=== PATIENT | female | born 1955 | race Caucasian/White ===

== ENCOUNTER → 2020-01-11 | Outpatient (CLI) | payer BC ==
--- NOTE | 2020-01-11 20:02 | Diagnostic Imaging Report ---
PROCEDURE: US thyroid. TECHNIQUE: Multiple real-time grayscale images were obtained of the thyroid in various projections. INDICATION: Hypothyroid. Globus sensation. COMPARISON: There is no prior study for comparison. FINDINGS: The thyroid gland is not enlarged. The right lobe measures 3.6 x 2.1 x 1.6 cm while the left lobe is estimated to be 3.7 x 1.6 x 1.1 cm (normal gland size is 4-5 x 2.2 cm or less). In the superior pole of the right lobe, there is a 1.6 x 1.4 x 1.1 cm nodule. This lesion is mixed solid and cystic and hypoechoic. It does appear to be wider than tall and has a lobulated irregular border. There are no calcifications associated with this finding. I would rate this is a TR4. An ultrasound-guided biopsy should certainly be considered. If there is no intervention this time, then a short-term (three-month) follow-up exam should be obtained. There is no focal mass involving the left lobe. IMPRESSION: 1. There is a suspicious hypoechoic lesion in the superior pole of the right lobe of the thyroid. I rate this as a TI-RADS 4. Recommendations as above. 2. The left lobe of the thyroid is unremarkable and the thyroid gland, itself, is not enlarged. TI-RADS 4: Moderately Suspicious FNA if ? 1.5 cm Follow if ? 1 cm (At 1, 2, 3 and 5 years from initial scan) Dictated by: Dictated on workstation # [id number]
== END ==
LOC: RAD 12:44
PROVIDERS: ATTEND Otolaryngology Otolaryngology/Facial Plastic Surgery
DX: E03.9 Hypothyroidism, unspecified (principal); R44.8 Other symptoms and signs involving general sensations and perceptions
CPT/HCPCS: 76536

== ENCOUNTER → 2020-02-20 | Outpatient (CLI) | payer BC ==
[~2020-02-20] VITALS: Ht 165.1 cm; Wt 77.3 kg
[~2020-02-20] MED LIST: LIDOCAINE 1% INJ 20 ML 20 ML VIAL INJ ONE
--- NOTE | 2020-02-20 10:02 | Diagnostic Imaging Report ---
INDICATION: Right thyroid nodule. Patient presents for ultrasound-guided biopsy. Patient brought to the procedure and placed on table in the supine position. Ultrasound imaging of the right neck was performed to evaluate appropriate entry site. The right neck was then prepped and draped in usual sterile fashion. A small amount of 1% lidocaine was utilized for local anesthesia. A total of 4 passes were made into the hypoechoic nodule in upper pole right lobe of thyroid utilizing 25-gauge needles. Fine-needle aspiration technique was performed. A final pass was made into the nodule with a Rotex needle and Rotex biopsy was performed. Rosebud were removed and hemostasis was obtained using manual compression. Patient tolerated the procedure well and left the department in stable condition. IMPRESSION: Ultrasound-guided fine-needle aspiration and Rotex biopsy of the hypoechoic nodule upper pole right lobe of the thyroid. Pathology results are currently pending. Dictated by: Dictated on workstation # [id number]
== END ==
LOC: RAD 08:19
PROVIDERS: ATTEND Otolaryngology Otolaryngology/Facial Plastic Surgery
DX: E04.1 Nontoxic single thyroid nodule (principal); Z88.8 Allergy status to other drugs, medicaments and biological substances
CPT/HCPCS: 88173

== ENCOUNTER → 2020-07-28 | Outpatient (CLI) | payer BC, MEDICARE ==
[2020-07-28 12:09] LABS: FREE T4 (FREE THYROXINE) 1.08 NG/DL (0.70-1.48)
--- NOTE | 2020-07-28 12:22 | Diagnostic Imaging Report ---
PROCEDURE: US Thyroid. TECHNIQUE: Multiple real-time grayscale images were obtained of the thyroid in various projections. INDICATION: Thyroid nodule. FINDINGS: In the posterior aspect of the midpole of the right thyroid lobe laterally, there is a new well-defined nodule measuring 1 cm in long axis with a hypoechoic rim and central hyperechogenicity. It showed no extra thyroidal extension and is solid. In the upper pole of the right lobe previously there was a large vesiculated spongiform nodule which is now resolved. The left lobe was nonfocal. The right thyroid lobe measured 4.1 cm, the left lobe 4.1 cm. IMPRESSION: New right lobe nodule is a TI-RADS 4 lesion however given its small size of 1 cm, followup in 1, 2, 3 and 5 year interval suggested. Dictated by: Dictated on workstation # [id number]
== END ==
LOC: RAD 10:56
PROVIDERS: ATTEND Otolaryngology Otolaryngology/Facial Plastic Surgery
DX: E04.1 Nontoxic single thyroid nodule (principal); E06.3 Autoimmune thyroiditis
CPT/HCPCS: 36415; 76536; 84439; 84443; 86376

== ENCOUNTER → 2021-01-28 | Day surgery (SDC) | payer MEDICARE, OTHER ==
[~2021-01-28] VITALS: Ht 165 cm; Wt 77.3 kg
[~2021-01-28] MED LIST changes: +ALBU1.25 INH; +CARV25TA PO; +HYDR12.56 PO; +HYDROcodone/APAP 5 MG/325 MG (LORTAB) TAB PO PRN; +LEVO25CA4 PO; +MIDAZOLAM 2 MG/2 ML (VERSED) VIAL IVP ONE; +NS IV 1000 ML 1,000 ML IV STA; +PANT40TA52 PO; +fentaNYL INJ 100 MCG/2 ML AMP IVP ONE
[2021-01-28 08:29] VITALS: BP 103/74
[2021-01-28 08:30] LABS: BASOPHILS % (AUTO) 1 % (0-10); HEMOGLOBIN 9.7 g/dL (11.5-16.0)
[2021-01-28 08:33] LABS: ABSOLUTE RETIC # 186 10e9/uL (24-90); EOSINOPHILS % (AUTO) 1 % (0-10); HEMATOCRIT 31 % (35-52); LYMPHOCYTES # (AUTO) 2.4 10^3/uL (1.0-4.0); LYMPHOCYTES % (AUTO) 72 % (12-44); MEAN CORPUSCULAR HEMOGLOBIN 34 pg (25-34); MEAN CORPUSCULAR HGB CONC 31 g/dL (32-36); MEAN CORPUSCULAR VOLUME 108 fL (80-99); MEAN PLATELET VOLUME 9.1 fL (9.0-12.2); MONOCYTES # (AUTO) 0.3 10^3/uL (0.0-1.0); MONOCYTES % (AUTO) 8 % (0-12); NEUTROPHILS # (AUTO) 0.6 10^3/uL (1.8-7.8); NEUTROPHILS % (AUTO) 18 % (42-75); PLATELET COUNT 149 10^3/uL (130-400); RETICULOCYTE % 6.46 % (0.50-2.40); WHITE BLOOD COUNT 3.3 10^3/uL (4.3-11.0)
[2021-01-28 10:03] LABS: BAND NEUTROPHILS 2 %; BASOPHILS % (MANUAL) 0 %; EOSINOPHILS % (MANUAL) 0 %; LYMPHOCYTES % (MANUAL) 57 %; MONOCYTES % (MANUAL) 9 %; NEUTROPHILS % (MANUAL) 18 %; POIKILOCYTOSIS SLIGHT; REACTIVE LYMPHOCYTES 14 %
[2021-01-28 10:04] LABS: ANISOCYTOSIS SLIGHT; ELLIPT/OVALOCYTES SLIGHT; NUCLEATED RED BLOOD CELLS 1; TEAR DROP CELLS SLIGHT
[2021-02-04 11:00] VITALS: BP 141/89
[2021-02-04 11:05] VITALS: BP 154/85
[2021-02-04 11:10] VITALS: BP 134/83
[2021-02-04 11:15] VITALS: BP 123/68
== END ==
LOC: RAD 07:37
PROVIDERS: ATTEND Internal Medicine Hematology & Oncology
DX: Z53.8 Procedure and treatment not carried out for other reasons (principal)
CPT/HCPCS: 85027; 85045; 85055; 85610; 85730

== ENCOUNTER 2021-02-04 09:30 | Day surgery (SDC) | payer MEDICARE, OTHER ==
[~2021-02-04] VITALS: Ht 165 cm; Wt 77.3 kg
[2021-02-04] VITALS (11 sets, daily range): BP systolic 102–154; BP diastolic 68–89
[~2021-02-04 09:30] MED LIST changes: -HYDROcodone/APAP 5 MG/325 MG (LORTAB) TAB PO PRN; -LIDOCAINE 1% INJ 20 ML 20 ML VIAL INJ ONE; -MIDAZOLAM 2 MG/2 ML (VERSED) VIAL IVP ONE; -NS IV 1000 ML 1,000 ML IV STA; -fentaNYL INJ 100 MCG/2 ML AMP IVP ONE
[2021-02-04 10:20] LABS: ABSOLUTE RETIC # 199 10e9/uL (24-90); BASOPHILS % (AUTO) 1 % (0-10); EOSINOPHILS % (AUTO) 1 % (0-10); HEMATOCRIT 32 % (35-52); HEMOGLOBIN 10.1 g/dL (11.5-16.0); LYMPHOCYTES # (AUTO) 2.8 10^3/uL (1.0-4.0); LYMPHOCYTES % (AUTO) 75 % (12-44); MEAN CORPUSCULAR HEMOGLOBIN 34 pg (25-34); MEAN CORPUSCULAR HGB CONC 31 g/dL (32-36); MEAN CORPUSCULAR VOLUME 108 fL (80-99); MONOCYTES # (AUTO) 0.2 10^3/uL (0.0-1.0); MONOCYTES % (AUTO) 6 % (0-12); NEUTROPHILS # (AUTO) 0.6 10^3/uL (1.8-7.8); NEUTROPHILS % (AUTO) 17 % (42-75); PLATELET COUNT 162 10^3/uL (130-400); RETICULOCYTE % 6.71 % (0.50-2.40); WHITE BLOOD COUNT 3.7 10^3/uL (4.3-11.0)
[2021-02-04 10:30] LABS: PROTHROMBIN TIME PATIENT 13.7 SEC (12.2-14.7)
[2021-02-04] MEDS ORDERED: MIDAZOLAM 2 MG/2 ML (VERSED) VIAL ONE (10:34)
[2021-02-04] MEDS ORDERED: LIDOCAINE 1% INJ 20 ML 20 ML VIAL ONE (10:34)
[2021-02-04] MEDS ORDERED: fentaNYL INJ 100 MCG/2 ML AMP ONE (10:34)
[2021-02-04] MEDS ORDERED: NS IV 1000 ML 1,000 ML ONE (10:38)
[2021-02-04 10:54] LABS: EOSINOPHILS % (MANUAL) 2 %; LYMPHOCYTES % (MANUAL) 72 %; MONOCYTES % (MANUAL) 3 %; NEUTROPHILS % (MANUAL) 13 %
[2021-02-04 10:55] LABS: POLYCHROMASIA SLIGHT; REACTIVE LYMPHOCYTES 1 %
--- NOTE | 2021-02-04 11:47 | Pre-Op Note & Conscious Sedat ---
Pre-Operative Progress Note H&P Reviewed The H&P was reviewed, patient examined and no changes noted. Date H&P Reviewed: Feb 04, 2021 Time H&P Reviewed: 09:00 Pre-Op Diagnosis: low wbc count Conscious Sedation Pre-Proced Time 09:00 ASA Score 2 For ASA 3 and 4: Consider anesthesia and medical clearance. Also, for patients with a history of failed moderate sedation consider anesthesia. Airway Lungs Heart ASA score ASA 1: a normal healthy patient ASA 2: a patient with a mild systemic disease (mid diabetes, controlled hypertension, obesity ASA 3: a patient with a severe systemic disease that limits activity (angina, COPD, prior Myocardial infarction) ASA 4: a patient with an incapacitating disease that is a constant threat to life (CHF, renal failure) ASA 5: a moribund patient not expected to survive 24 hrs. (ruptured aneurysm) ASA 6: a declared brain- patient whose organs are being harvested. For emergent operations, add the letter E after the classification Mallampati Classification Grade 2 Sedation Plan Analgesia, Amnesia, Plan communicated to team members, Discussed options with patient/fam, Discussed risks with patient/fam The patient is an appropriate candidate to undergo the planned procedure, sedation, and anesthesia. The patient immediately re-assessed prior to indication. KAREN LUCERO MD Feb 04, 2021 11:47
--- NOTE | 2021-02-04 12:48 | Diagnostic Imaging Report ---
INDICATION: Decreased white blood cell count. Patient was brought to the CT suite and placed on table in the prone position. Axial imaging through the pelvis was performed to evaluate appropriate entry site. The procedure was performed utilizing conscious sedation with radiology nursing and constant patient monitoring. Patient was given a total of 50 mcg of fentanyl intravenously and 1 mg of Versed intravenously. Total procedure time was 5 minutes. Low back was prepped and draped in the usual sterile fashion. A small amount of 1% lidocaine was utilized for local anesthesia. Bone marrow needle was advanced and placed with its tip along the posterior cortex of the right iliac bone. The needle was advanced through the cortex utilizing the bone marrow drill. Two bone marrow aspirates were then obtained. A drill was then utilized to obtain a bone marrow core biopsy. Needle was removed, and hemostasis was obtained using manual compression. Patient tolerated the procedure well and left the department in stable condition. IMPRESSION: Successful CT-guided bone marrow aspiration and biopsy, utilizing conscious sedation. Dictated by: Dictated on workstation # [id number]
[2021-02-04] MEDS ORDERED: HYDROcodone/APAP 5 MG/325 MG (LORTAB) TAB PO PRN (13:00)
[2021-02-04] MEDS ORDERED: NS IV 1000 ML 1,000 ML IV STA (13:48)
[2021-02-04] MEDS ORDERED: fentaNYL INJ 100 MCG/2 ML AMP IVP ONE (14:00)
[2021-02-04] MEDS ORDERED: LIDOCAINE 1% INJ 20 ML 20 ML VIAL INJ ONE (14:00)
[2021-02-04] MEDS ORDERED: MIDAZOLAM 2 MG/2 ML (VERSED) VIAL IVP ONE (14:00)
== END 2021-02-04 13:30 ==
LOC: RAD 09:30
PROVIDERS: ATTEND Internal Medicine Hematology & Oncology
DX: D64.9 Anemia, unspecified (principal); D70.9 Neutropenia, unspecified; R11.10 Vomiting, unspecified; R19.7 Diarrhea, unspecified; R03.0 Elevated blood-pressure reading, without diagnosis of hypertension; E78.00 Pure hypercholesterolemia, unspecified; Z85.3 Personal history of malignant neoplasm of breast; Z85.820 Personal history of malignant melanoma of skin; Z79.899 Other long term (current) drug therapy; Z87.891 Personal history of nicotine dependence; Z86.718 Personal history of other venous thrombosis and embolism
CPT/HCPCS: 36415; 38222; 77012; 85007; 85027; 85045; 85610; 85730; 99156

== ENCOUNTER 2021-02-13 13:44 | Outpatient (RCR) | payer MEDICARE, OTHER ==
[2021-01-21 11:45] LABS: BASOPHILS % (AUTO) 1 % (0-10); HEMOGLOBIN 9.4 g/dL (11.5-16.0); MEAN PLATELET VOLUME 8.7 fL (9.0-12.2); MONOCYTES # (AUTO) 0.2 10^3/uL (0.0-1.0); MONOCYTES % (AUTO) 7 % (0-12)
[2021-01-21 11:47] LABS: ABSOLUTE RETIC # 181 10e9/uL (24-90); EOSINOPHILS % (AUTO) 1 % (0-10); HEMATOCRIT 30 % (35-52); LYMPHOCYTES # (AUTO) 2.5 10^3/uL (1.0-4.0); LYMPHOCYTES % (AUTO) 75 % (12-44); MEAN CORPUSCULAR HEMOGLOBIN 34 pg (25-34); MEAN CORPUSCULAR HGB CONC 31 g/dL (32-36); MEAN CORPUSCULAR VOLUME 108 fL (80-99); NEUTROPHILS # (AUTO) 0.6 10^3/uL (1.8-7.8); NEUTROPHILS % (AUTO) 17 % (42-75); PLATELET COUNT 166 10^3/uL (130-400); RETICULOCYTE % 6.48 % (0.50-2.40); WHITE BLOOD COUNT 3.4 10^3/uL (4.3-11.0)
[2021-01-21 12:04] LABS: ALANINE AMINOTRANSFERASE 17 U/L (0-55); ALBUMIN 4.1 GM/DL (3.2-4.5); ALKALINE PHOSPHATASE 48 U/L (40-136); BILIRUBIN,TOTAL 2.2 MG/DL (0.1-1.0); BUN/CREATININE RATIO 15; CALCIUM 9.1 MG/DL (8.5-10.1); CARBON DIOXIDE 26 MMOL/L (21-32); CHLORIDE 104 MMOL/L (98-107); CREATININE SERUM 0.67 MG/DL (0.60-1.30); GFR ESTIMATED > 60; GLUCOSE 186 MG/DL (70-105); POTASSIUM 3.7 MMOL/L (3.6-5.0); SODIUM 138 MMOL/L (135-145); TOTAL PROTEIN 6.6 GM/DL (6.4-8.2)
[2021-01-21 14:34] LABS: BAND NEUTROPHILS 2 %; BASOPHILS % (MANUAL) 0 %; EOSINOPHILS % (MANUAL) 0 %; LYMPHOCYTES % (MANUAL) 79 %; MONOCYTES % (MANUAL) 6 %; NEUTROPHILS % (MANUAL) 13 %; NUCLEATED RED BLOOD CELLS 1; POLYCHROMASIA SLIGHT
[2021-01-21 14:35] LABS: ANISOCYTOSIS SLIGHT
== END 2021-02-13 15:12 | disposition home or self-care (01) ==
LOC: ONC 13:44
PROVIDERS: ATTEND Internal Medicine Hematology & Oncology
DX: D70.9 Neutropenia, unspecified (principal); D64.9 Anemia, unspecified; I82.811 Embolism and thrombosis of superficial veins of right lower extremity; Z85.3 Personal history of malignant neoplasm of breast
CPT/HCPCS: 80053; 82607; 82728; 82746; 83540; 83550; 83615; 85007; 85027; 85045; 85055; 86880; G0463; 99213; 99214

== ENCOUNTER → 2021-03-18 | Outpatient (CLI) | payer MEDICARE, OTHER ==
[~2021-03-18] MED LIST changes: +CATHETER FLUSH 10 ML SYR IV PRN; +HOLD METFORMIN - RECEIVED CONTRAST 20 ML VIAL IV SCH; +IOHEXOL 350 MG/ML 100 ML (OMNIPAQUE 350) VIAL IV ONE; +NS 100 ML (IVPB) BAG IV ONE
[2021-03-18 12:52] LABS: ALBUMIN 4.3 GM/DL (3.2-4.5); BILIRUBIN,TOTAL 3.4 MG/DL (0.1-1.0); CALCIUM 9.6 MG/DL (8.5-10.1); CREATININE SERUM 0.75 MG/DL (0.60-1.30); POTASSIUM 4.1 MMOL/L (3.6-5.0); TOTAL PROTEIN 7.1 GM/DL (6.4-8.2)
--- NOTE | 2021-03-18 14:17 | Diagnostic Imaging Report ---
PROCEDURE: CT abdomen and pelvis with and without contrast. TECHNIQUE: Precontrast acquisitions were acquired through the abdomen and pelvis. Multiple contiguous axial images were obtained through the abdomen and pelvis after the administration of intravenous contrast. Auto Exposure Controls were utilized during the CT exam to meet ALARA standards for radiation dose reduction. DATE: March 18, 2021. COMPARISON: None. INDICATION: 65-year-old female, abdominal pain. History of breast cancer, melanoma, and basal cell carcinoma. FINDINGS: There is a 2 mm noncalcified right lower lobe pulmonary nodule on axial image 13 and also on axial image 11. There is a 4 mm calcified left lower lobe granuloma on axial image 8. The heart is not enlarged. There is no pericardial effusion. The liver is unremarkable in size and contour. There is no identified focal liver lesion. The main, right, and left portal veins are patent. The gallbladder is unremarkable. There is no biliary ductal dilation. The main pancreatic duct is not abnormally dilated. Unremarkable appearance of the pancreatic parenchyma. The spleen is normal in size. The adrenal glands are unremarkable. Unremarkable appearance of the renal parenchyma. The urinary collecting systems are not distended. There is no identified renal or ureteral stone. The urinary bladder is unremarkable. The uterus is not seen and likely is surgically absent. There is diverticulosis without evidence of acute diverticulitis. The appendix is well-seen on axial image 56 and adjacent sequential images. There is no evidence of acute appendicitis. There is no free intraperitoneal air. There is no drainable fluid collection. There is no free pelvic fluid. There are atherosclerotic calcifications. There is no identified abnormally enlarged lymph node in the abdomen or pelvis meeting CT size criteria for adenopathy. There is no identified acute bony abnormality. There is a lucent lesion in the T11 vertebral body measuring 5 mm in size on sagittal image 41 which is nonspecific. IMPRESSION: 1. There is a 5 mm lesion in the T11 vertebral body which is nonspecific. Both benign and malignant etiologies are in the differential diagnosis. Recommend comparison with prior imaging, if available. If comparison imaging is not available, recommend MRI thoracic spine without and with intravenous contrast for further assessment. 2. No additional identified bone lesion. 3. No identified acute abnormality in the abdomen or pelvis. Dictated by: Dictated on workstation # [id number]
== END ==
LOC: RAD 12:30
PROVIDERS: ATTEND Family Medicine
DX: R10.84 Generalized abdominal pain (principal); J18.9 Pneumonia, unspecified organism; M89.9 Disorder of bone, unspecified; Z85.3 Personal history of malignant neoplasm of breast
CPT/HCPCS: 36415; 74178; 80053

== ENCOUNTER 2021-06-09 08:48 | Outpatient (RCR) | payer MEDICARE, OTHER ==
[2021-03-18 10:22] LABS: EOSINOPHILS % (AUTO) 1 % (0-10); HEMOGLOBIN 7.9 g/dL (11.5-16.0); MEAN PLATELET VOLUME 9.5 fL (9.0-12.2); MONOCYTES # (AUTO) 0.3 10^3/uL (0.0-1.0); MONOCYTES % (AUTO) 7 % (0-12)
[2021-03-18 10:24] LABS: BASOPHILS % (AUTO) 1 % (0-10); HEMATOCRIT 26 % (35-52); LYMPHOCYTES # (AUTO) 2.9 10^3/uL (1.0-4.0); LYMPHOCYTES % (AUTO) 72 % (12-44); MEAN CORPUSCULAR HEMOGLOBIN 34 pg (25-34); MEAN CORPUSCULAR HGB CONC 31 g/dL (32-36); MEAN CORPUSCULAR VOLUME 110 fL (80-99); NEUTROPHILS # (AUTO) 0.7 10^3/uL (1.8-7.8); NEUTROPHILS % (AUTO) 17 % (42-75); PLATELET COUNT 120 10^3/uL (130-400); WHITE BLOOD COUNT 4.1 10^3/uL (4.3-11.0)
[2021-04-08 11:10] LABS: MEAN CORPUSCULAR HEMOGLOBIN 34 pg (25-34); MEAN CORPUSCULAR HGB CONC 30 g/dL (32-36)
[2021-04-08 11:12] LABS: BASOPHILS % (AUTO) 1 % (0-10); EOSINOPHILS % (AUTO) 0 % (0-10); HEMATOCRIT 26 % (35-52); HEMOGLOBIN 7.7 g/dL (11.5-16.0); LYMPHOCYTES % (AUTO) 74 % (12-44); MEAN CORPUSCULAR VOLUME 114 fL (80-99); MEAN PLATELET VOLUME 11.6 fL (9.0-12.2); MONOCYTES # (AUTO) 0.2 10^3/uL (0.0-1.0); MONOCYTES % (AUTO) 7 % (0-12); NEUTROPHILS # (AUTO) 0.5 10^3/uL (1.8-7.8); NEUTROPHILS % (AUTO) 18 % (42-75); PLATELET COUNT 93 10^3/uL (130-400); WHITE BLOOD COUNT 2.8 10^3/uL (4.3-11.0)
[2021-04-08 11:26] LABS: ALBUMIN 4.1 GM/DL (3.2-4.5); BILIRUBIN,TOTAL 2.8 MG/DL (0.1-1.0); CALCIUM 9.2 MG/DL (8.5-10.1); CREATININE SERUM 0.66 MG/DL (0.60-1.30); POTASSIUM 4.1 MMOL/L (3.6-5.0); TOTAL PROTEIN 6.7 GM/DL (6.4-8.2)
[2021-04-13 11:47] LABS: EOSINOPHILS % (AUTO) 0 % (0-10); HEMOGLOBIN 8.3 g/dL (11.5-16.0)
[2021-04-13 11:49] LABS: BASOPHILS % (AUTO) 0 % (0-10); HEMATOCRIT 27 % (35-52); LYMPHOCYTES # (AUTO) 2.2 10^3/uL (1.0-4.0); LYMPHOCYTES % (AUTO) 80 % (12-44); MEAN CORPUSCULAR HEMOGLOBIN 34 pg (25-34); MEAN CORPUSCULAR HGB CONC 30 g/dL (32-36); MEAN CORPUSCULAR VOLUME 113 fL (80-99); MEAN PLATELET VOLUME 9.8 fL (9.0-12.2); MONOCYTES # (AUTO) 0.1 10^3/uL (0.0-1.0); MONOCYTES % (AUTO) 4 % (0-12); NEUTROPHILS # (AUTO) 0.4 10^3/uL (1.8-7.8); NEUTROPHILS % (AUTO) 14 % (42-75); PLATELET COUNT 118 10^3/uL (130-400); WHITE BLOOD COUNT 2.7 10^3/uL (4.3-11.0)
[2021-04-13 12:05] LABS: CALCIUM 9.5 MG/DL (8.5-10.1); CREATININE SERUM 0.7 MG/DL (0.60-1.30); POTASSIUM 4.4 MMOL/L (3.6-5.0)
[2021-04-20 13:55] LABS: BASOPHILS % (AUTO) 0 % (0-10); EOSINOPHILS % (AUTO) 0 % (0-10); HEMOGLOBIN 8.2 g/dL (11.5-16.0); MEAN PLATELET VOLUME 10.5 fL (9.0-12.2)
[2021-04-20 13:56] LABS: HEMATOCRIT 27 % (35-52); LYMPHOCYTES # (AUTO) 1.6 10^3/uL (1.0-4.0); LYMPHOCYTES % (AUTO) 62 % (12-44); MEAN CORPUSCULAR HEMOGLOBIN 36 pg (25-34); MEAN CORPUSCULAR HGB CONC 30 g/dL (32-36); MEAN CORPUSCULAR VOLUME 119 fL (80-99); MONOCYTES # (AUTO) 0.2 10^3/uL (0.0-1.0); MONOCYTES % (AUTO) 9 % (0-12); NEUTROPHILS # (AUTO) 0.6 10^3/uL (1.8-7.8); NEUTROPHILS % (AUTO) 25 % (42-75); PLATELET COUNT 96 10^3/uL (130-400); WHITE BLOOD COUNT 2.5 10^3/uL (4.3-11.0)
[2021-04-20 14:16] LABS: CALCIUM 9.1 MG/DL (8.5-10.1); CREATININE SERUM 0.64 MG/DL (0.60-1.30); POTASSIUM 3.7 MMOL/L (3.6-5.0)
[2021-04-27 12:04] LABS: BASOPHILS % (AUTO) 1 % (0-10)
[2021-04-27 12:06] LABS: EOSINOPHILS % (AUTO) 0 % (0-10); HEMATOCRIT 25 % (35-52); HEMOGLOBIN 7.6 g/dL (11.5-16.0); LYMPHOCYTES # (AUTO) 1.8 10^3/uL (1.0-4.0); LYMPHOCYTES % (AUTO) 64 % (12-44); MEAN CORPUSCULAR HEMOGLOBIN 36 pg (25-34); MEAN CORPUSCULAR HGB CONC 30 g/dL (32-36); MEAN CORPUSCULAR VOLUME 120 fL (80-99); MEAN PLATELET VOLUME 10.2 fL (9.0-12.2); MONOCYTES # (AUTO) 0.2 10^3/uL (0.0-1.0); MONOCYTES % (AUTO) 8 % (0-12); NEUTROPHILS # (AUTO) 0.7 10^3/uL (1.8-7.8); NEUTROPHILS % (AUTO) 24 % (42-75); PLATELET COUNT 98 10^3/uL (130-400); WHITE BLOOD COUNT 2.8 10^3/uL (4.3-11.0)
[2021-04-27 12:29] LABS: CALCIUM 9.8 MG/DL (8.5-10.1); CREATININE SERUM 0.72 MG/DL (0.60-1.30); POTASSIUM 3.6 MMOL/L (3.6-5.0)
[2021-04-27 16:04] LABS: ALBUMIN 4.1 GM/DL (3.2-4.5); BILIRUBIN,TOTAL 3.4 MG/DL (0.1-1.0); TOTAL PROTEIN 6.8 GM/DL (6.4-8.2)
[2021-05-04 09:46] LABS: BASOPHILS % (AUTO) 2 % (0-10); EOSINOPHILS # (AUTO) 0.1 10^3/uL (0.0-0.3); EOSINOPHILS % (AUTO) 3 % (0-10); HEMATOCRIT 27 % (35-52); HEMOGLOBIN 7.9 g/dL (11.5-16.0); LYMPHOCYTES # (AUTO) 1.6 10^3/uL (1.0-4.0); LYMPHOCYTES % (AUTO) 67 % (12-44); MEAN CORPUSCULAR HEMOGLOBIN 35 pg (25-34); MEAN CORPUSCULAR HGB CONC 30 g/dL (32-36); MEAN CORPUSCULAR VOLUME 118 fL (80-99); MEAN PLATELET VOLUME 10.1 fL (9.0-12.2); MONOCYTES # (AUTO) 0.2 10^3/uL (0.0-1.0); MONOCYTES % (AUTO) 7 % (0-12); NEUTROPHILS # (AUTO) 0.4 10^3/uL (1.8-7.8); NEUTROPHILS % (AUTO) 18 % (42-75); PLATELET COUNT 158 10^3/uL (130-400); WHITE BLOOD COUNT 2.4 10^3/uL (4.3-11.0)
[2021-05-04 10:08] LABS: ALBUMIN 3.9 GM/DL (3.2-4.5); BILIRUBIN,TOTAL 3.2 MG/DL (0.1-1.0); CALCIUM 9.2 MG/DL (8.5-10.1); CREATININE SERUM 0.67 MG/DL (0.60-1.30); POTASSIUM 3.8 MMOL/L (3.6-5.0); TOTAL PROTEIN 6.5 GM/DL (6.4-8.2)
[2021-05-11 09:10] LABS: BASOPHILS % (AUTO) 1 % (0-10); EOSINOPHILS # (AUTO) 0.1 10^3/uL (0.0-0.3); EOSINOPHILS % (AUTO) 3 % (0-10); HEMATOCRIT 24 % (35-52); HEMOGLOBIN 7.3 g/dL (11.5-16.0); LYMPHOCYTES # (AUTO) 1.4 10^3/uL (1.0-4.0); LYMPHOCYTES % (AUTO) 63 % (12-44); MEAN CORPUSCULAR HEMOGLOBIN 35 pg (25-34); MEAN CORPUSCULAR HGB CONC 30 g/dL (32-36); MEAN CORPUSCULAR VOLUME 116 fL (80-99); MEAN PLATELET VOLUME 9.9 fL (9.0-12.2); MONOCYTES # (AUTO) 0.1 10^3/uL (0.0-1.0); MONOCYTES % (AUTO) 6 % (0-12); NEUTROPHILS # (AUTO) 0.5 10^3/uL (1.8-7.8); NEUTROPHILS % (AUTO) 24 % (42-75); PLATELET COUNT 250 10^3/uL (130-400); WHITE BLOOD COUNT 2.2 10^3/uL (4.3-11.0)
[2021-05-11 09:22] LABS: POTASSIUM 4.4 MMOL/L (3.6-5.0)
[2021-05-11 09:23] LABS: CALCIUM 9.2 MG/DL (8.5-10.1)
[2021-05-11 09:28] LABS: CREATININE SERUM 0.64 MG/DL (0.60-1.30)
[2021-05-18 10:01] LABS: BASOPHILS % (AUTO) 1 % (0-10); EOSINOPHILS % (AUTO) 0 % (0-10); HEMATOCRIT 24 % (35-52); HEMOGLOBIN 7.1 g/dL (11.5-16.0); LYMPHOCYTES # (AUTO) 2.3 10^3/uL (1.0-4.0); LYMPHOCYTES % (AUTO) 77 % (12-44); MEAN CORPUSCULAR HEMOGLOBIN 35 pg (25-34); MEAN CORPUSCULAR HGB CONC 30 g/dL (32-36); MEAN CORPUSCULAR VOLUME 118 fL (80-99); MEAN PLATELET VOLUME 9.9 fL (9.0-12.2); MONOCYTES # (AUTO) 0.2 10^3/uL (0.0-1.0); MONOCYTES % (AUTO) 6 % (0-12); NEUTROPHILS # (AUTO) 0.5 10^3/uL (1.8-7.8); NEUTROPHILS % (AUTO) 15 % (42-75); PLATELET COUNT 144 10^3/uL (130-400)
[2021-05-18 10:21] LABS: CALCIUM 9.3 MG/DL (8.5-10.1); CREATININE SERUM 0.63 MG/DL (0.60-1.30); POTASSIUM 3.9 MMOL/L (3.6-5.0)
[2021-05-25 11:58] LABS: BASOPHILS % (AUTO) 1 % (0-10); EOSINOPHILS % (AUTO) 1 % (0-10); HEMATOCRIT 28 % (35-52); HEMOGLOBIN 8.3 g/dL (11.5-16.0); LYMPHOCYTES # (AUTO) 2.9 10^3/uL (1.0-4.0); LYMPHOCYTES % (AUTO) 84 % (12-44); MEAN CORPUSCULAR HEMOGLOBIN 36 pg (25-34); MEAN CORPUSCULAR HGB CONC 30 g/dL (32-36); MEAN CORPUSCULAR VOLUME 119 fL (80-99); MEAN PLATELET VOLUME 10.1 fL (9.0-12.2); MONOCYTES # (AUTO) 0.1 10^3/uL (0.0-1.0); MONOCYTES % (AUTO) 4 % (0-12); NEUTROPHILS # (AUTO) 0.4 10^3/uL (1.8-7.8); NEUTROPHILS % (AUTO) 10 % (42-75); PLATELET COUNT 113 10^3/uL (130-400); WHITE BLOOD COUNT 3.5 10^3/uL (4.3-11.0)
[2021-05-25 12:24] LABS: CALCIUM 9.2 MG/DL (8.5-10.1); CREATININE SERUM 0.61 MG/DL (0.60-1.30); POTASSIUM 4.1 MMOL/L (3.6-5.0)
[2021-06-01 10:02] LABS: BASOPHILS % (AUTO) 1 % (0-10); EOSINOPHILS # (AUTO) 0.1 10^3/uL (0.0-0.3); EOSINOPHILS % (AUTO) 2 % (0-10); HEMATOCRIT 34 % (35-52); HEMOGLOBIN 10.2 g/dL (11.5-16.0); LYMPHOCYTES # (AUTO) 2.8 10^3/uL (1.0-4.0); LYMPHOCYTES % (AUTO) 81 % (12-44); MEAN CORPUSCULAR HEMOGLOBIN 35 pg (25-34); MEAN CORPUSCULAR HGB CONC 30 g/dL (32-36); MEAN CORPUSCULAR VOLUME 116 fL (80-99); MEAN PLATELET VOLUME 10.1 fL (9.0-12.2); MONOCYTES # (AUTO) 0.2 10^3/uL (0.0-1.0); MONOCYTES % (AUTO) 6 % (0-12); NEUTROPHILS # (AUTO) 0.3 10^3/uL (1.8-7.8); NEUTROPHILS % (AUTO) 9 % (42-75); PLATELET COUNT 184 10^3/uL (130-400); WHITE BLOOD COUNT 3.5 10^3/uL (4.3-11.0)
[2021-06-01 10:22] LABS: ALBUMIN 4.4 GM/DL (3.2-4.5); BILIRUBIN,TOTAL 2.5 MG/DL (0.1-1.0); CALCIUM 9.5 MG/DL (8.5-10.1); CREATININE SERUM 0.64 MG/DL (0.60-1.30); POTASSIUM 4.2 MMOL/L (3.6-5.0); TOTAL PROTEIN 7.1 GM/DL (6.4-8.2)
[2021-06-08 09:07] LABS: BASOPHILS # (AUTO) 0.1 10^3/uL (0.0-0.1); BASOPHILS % (AUTO) 1 % (0-10); EOSINOPHILS # (AUTO) 0.1 10^3/uL (0.0-0.3); EOSINOPHILS % (AUTO) 1 % (0-10); HEMATOCRIT 34 % (35-52); HEMOGLOBIN 10.6 g/dL (11.5-16.0); LYMPHOCYTES # (AUTO) 3.3 10^3/uL (1.0-4.0); LYMPHOCYTES % (AUTO) 83 % (12-44); MEAN CORPUSCULAR HEMOGLOBIN 35 pg (25-34); MEAN CORPUSCULAR HGB CONC 31 g/dL (32-36); MEAN CORPUSCULAR VOLUME 113 fL (80-99); MEAN PLATELET VOLUME 11.1 fL (9.0-12.2); MONOCYTES # (AUTO) 0.2 10^3/uL (0.0-1.0); MONOCYTES % (AUTO) 5 % (0-12); NEUTROPHILS # (AUTO) 0.4 10^3/uL (1.8-7.8); NEUTROPHILS % (AUTO) 9 % (42-75); PLATELET COUNT 196 10^3/uL (130-400); WHITE BLOOD COUNT 4.1 10^3/uL (4.3-11.0)
[2021-06-08 09:22] LABS: CALCIUM 9.6 MG/DL (8.5-10.1); CREATININE SERUM 0.66 MG/DL (0.60-1.30); POTASSIUM 4.3 MMOL/L (3.6-5.0)
[~2021-06-09] VITALS: Ht 165.1 cm; Wt 75.7 kg
[~2021-06-09 08:48] MED LIST changes: +AZACITIDINE IV SCH; +AZACITIDINE SQ SCH; -CATHETER FLUSH 10 ML SYR IV PRN; -HOLD METFORMIN - RECEIVED CONTRAST 20 ML VIAL IV SCH; -IOHEXOL 350 MG/ML 100 ML (OMNIPAQUE 350) VIAL IV ONE; -NS 100 ML (IVPB) BAG IV ONE; +NS IV 1000 ML (CANCER CTR) IV SCH; +NS IV SCH; +NS SQ SCH
== END 2021-06-16 | disposition home or self-care (01) ==
LOC: ONC 08:48
PROVIDERS: ATTEND Internal Medicine Hematology & Oncology
DX: D61.818 Other pancytopenia (principal); D70.9 Neutropenia, unspecified; D64.9 Anemia, unspecified; Z85.3 Personal history of malignant neoplasm of breast
CPT/HCPCS: 85025; G0463; 36415; 80048; 80053; 83615; 96375; 96409; 96411; 99213

== ENCOUNTER 2021-07-13 13:07 | Outpatient (RCR) | payer MEDICARE, OTHER ==
[2021-06-29 12:05] LABS: BASOPHILS # (AUTO) 0.1 10^3/uL (0.0-0.1); BASOPHILS % (AUTO) 2 % (0-10); EOSINOPHILS # (AUTO) 0.1 10^3/uL (0.0-0.3); EOSINOPHILS % (AUTO) 2 % (0-10); HEMATOCRIT 35 % (35-52); LYMPHOCYTES # (AUTO) 3.2 10^3/uL (1.0-4.0); LYMPHOCYTES % (AUTO) 77 % (12-44); MEAN CORPUSCULAR HEMOGLOBIN 34 pg (25-34); MEAN CORPUSCULAR HGB CONC 31 g/dL (32-36); MEAN CORPUSCULAR VOLUME 109 fL (80-99); MEAN PLATELET VOLUME 10.2 fL (9.0-12.2); MONOCYTES # (AUTO) 0.3 10^3/uL (0.0-1.0); MONOCYTES % (AUTO) 7 % (0-12); NEUTROPHILS # (AUTO) 0.5 10^3/uL (1.8-7.8); NEUTROPHILS % (AUTO) 12 % (42-75); PLATELET COUNT 174 10^3/uL (130-400); WHITE BLOOD COUNT 4.1 10^3/uL (4.3-11.0)
[2021-06-29 12:23] LABS: ALBUMIN 4.5 GM/DL (3.2-4.5); BILIRUBIN,TOTAL 2.6 MG/DL (0.1-1.0); CALCIUM 9.6 MG/DL (8.5-10.1); CREATININE SERUM 0.68 MG/DL (0.60-1.30); TOTAL PROTEIN 7.5 GM/DL (6.4-8.2)
[2021-07-06 09:35] LABS: BASOPHILS # (AUTO) 0.1 10^3/uL (0.0-0.1); BASOPHILS % (AUTO) 2 % (0-10); EOSINOPHILS # (AUTO) 0.1 10^3/uL (0.0-0.3); EOSINOPHILS % (AUTO) 2 % (0-10); HEMATOCRIT 34 % (35-52); HEMOGLOBIN 10.7 g/dL (11.5-16.0); LYMPHOCYTES # (AUTO) 3.8 10^3/uL (1.0-4.0); LYMPHOCYTES % (AUTO) 83 % (12-44); MEAN CORPUSCULAR HEMOGLOBIN 35 pg (25-34); MEAN CORPUSCULAR HGB CONC 32 g/dL (32-36); MEAN CORPUSCULAR VOLUME 109 fL (80-99); MEAN PLATELET VOLUME 10.4 fL (9.0-12.2); MONOCYTES # (AUTO) 0.3 10^3/uL (0.0-1.0); MONOCYTES % (AUTO) 7 % (0-12); NEUTROPHILS # (AUTO) 0.3 10^3/uL (1.8-7.8); NEUTROPHILS % (AUTO) 7 % (42-75); PLATELET COUNT 194 10^3/uL (130-400); WHITE BLOOD COUNT 4.6 10^3/uL (4.3-11.0)
[2021-07-06 09:49] LABS: CALCIUM 9.4 MG/DL (8.5-10.1); CREATININE SERUM 0.66 MG/DL (0.60-1.30)
[~2021-07-13 13:07] MED LIST changes: -AZACITIDINE IV SCH; -NS IV SCH
[2021-07-13 13:27] LABS: MEAN CORPUSCULAR VOLUME 109 fL (80-99); MEAN PLATELET VOLUME 10.2 fL (9.0-12.2)
[2021-07-13 13:29] LABS: BASOPHILS % (AUTO) 0 % (0-10); EOSINOPHILS % (AUTO) 0 % (0-10); HEMATOCRIT 29 % (35-52); HEMOGLOBIN 9.1 g/dL (11.5-16.0); LYMPHOCYTES % (AUTO) 78 % (12-44); MEAN CORPUSCULAR HEMOGLOBIN 34 pg (25-34); MEAN CORPUSCULAR HGB CONC 32 g/dL (32-36); MONOCYTES # (AUTO) 0.2 10^3/uL (0.0-1.0); MONOCYTES % (AUTO) 5 % (0-12); NEUTROPHILS # (AUTO) 0.8 10^3/uL (1.8-7.8); NEUTROPHILS % (AUTO) 16 % (42-75); PLATELET COUNT 145 10^3/uL (130-400); WHITE BLOOD COUNT 5.1 10^3/uL (4.3-11.0)
[2021-07-13 13:47] LABS: CALCIUM 9.2 MG/DL (8.5-10.1); CREATININE SERUM 0.67 MG/DL (0.60-1.30); POTASSIUM 3.8 MMOL/L (3.6-5.0)
== END 2021-07-31 | disposition home or self-care (01) ==
LOC: ONC 13:07
PROVIDERS: ATTEND Internal Medicine Hematology & Oncology
DX: Z51.11 Encounter for antineoplastic chemotherapy (principal); D61.818 Other pancytopenia; D70.9 Neutropenia, unspecified; D46.9 Myelodysplastic syndrome, unspecified; Z85.3 Personal history of malignant neoplasm of breast; Z92.21 Personal history of antineoplastic chemotherapy
CPT/HCPCS: 80053; 83615; 85025; 96375; 96409; G0463; 36415; 80048

== ENCOUNTER 2022-02-11 09:00 | Outpatient (RCR) | payer MEDICARE, OTHER ==
[2022-02-10 14:41] VITALS: BP 137/62
[2022-02-10 14:52] VITALS: BP 137/62
[2022-02-10 14:56] VITALS: BP 137/65
[2022-02-10 16:50] VITALS: BP 148/75
[2022-02-10 17:39] VITALS: BP 127/56
[~2022-02-11] VITALS: Ht 160 cm; Wt 53.2 kg
[~2022-02-11 09:00] MED LIST changes: +NS IV 500 ML 500 ML IV SCH; +NS IV 500 ML 500 ML ONE; -REMDESIVIR 100 MG/NS 250 ML IVPB IV SCH; +REMDESIVIR 200 MG/NS 250 ML IVPB IV NR
[2022-02-11 09:30] VITALS: BP 122/66
[2022-02-11] MEDS: REMDESIVIR 100 MG/NS 250 ML IVPB IV SCH ×2 (10:05)
[2022-02-12] MEDS: REMDESIVIR 100 MG/NS 250 ML IVPB IV SCH ×2 (09:36)
[2022-02-12 09:40] VITALS: BP 124/68
[2022-02-12 09:45] LABS: EOSINOPHILS % (AUTO) 1 % (0-10)
[2022-02-12 09:47] LABS: BASOPHILS % (AUTO) 0 % (0-10); HEMATOCRIT 24 % (35-52); LYMPHOCYTES # (AUTO) 0.2 10^3/uL (1.0-4.0); LYMPHOCYTES % (AUTO) 11 % (12-44); MEAN CORPUSCULAR HEMOGLOBIN 33 pg (25-34); MEAN CORPUSCULAR HGB CONC 34 g/dL (32-36); MEAN CORPUSCULAR VOLUME 96 fL (80-99); MEAN PLATELET VOLUME 12.2 fL (9.0-12.2); MONOCYTES # (AUTO) 0.4 10^3/uL (0.0-1.0); MONOCYTES % (AUTO) 21 % (0-12); NEUTROPHILS # (AUTO) 1.3 10^3/uL (1.8-7.8); NEUTROPHILS % (AUTO) 67 % (42-75); PLATELET COUNT 54 10^3/uL (130-400)
[2022-02-12 10:04] LABS: ALBUMIN 3.8 GM/DL (3.2-4.5); BILIRUBIN,TOTAL 0.4 MG/DL (0.1-1.0); CALCIUM 9.4 MG/DL (8.5-10.1); CREATININE SERUM 1.43 MG/DL (0.60-1.30); POTASSIUM 3.3 MMOL/L (3.6-5.0); TOTAL PROTEIN 6.8 GM/DL (6.4-8.2)
[2022-02-12 10:28] LABS: ANISOCYTOSIS MODERATE; LYMPHOCYTES % (MANUAL) 14 %; MONOCYTES % (MANUAL) 20 %; NEUTROPHILS % (MANUAL) 66 %; POIKILOCYTOSIS SLIGHT
[2022-02-12 10:47] VITALS: BP 128/67
== END 2022-02-12 11:00 | disposition home or self-care (01) ==
LOC: SDC 09:00
PROVIDERS: ATTEND Internal Medicine Hematology & Oncology
DX: B25.0 Cytomegaloviral pneumonitis (principal); D46.9 Myelodysplastic syndrome, unspecified; Z94.81 Bone marrow transplant status
CPT/HCPCS: 36415; 36430; 80053; 85007; 85027; 86850; 86900; 86901; 86920; 86945

== ENCOUNTER → 2022-02-11 | Outpatient (CLI) | payer MEDICARE, OTHER ==
[~2022-02-11] MED LIST changes: -AZACITIDINE SQ SCH; -NS IV 1000 ML (CANCER CTR) IV SCH; -NS SQ SCH; +REMDESIVIR 100 MG/NS 250 ML IVPB IV SCH
--- NOTE | 2022-02-11 10:27 | Diagnostic Imaging Report ---
CT CHEST WO TECHNIQUE: Multiple contiguous axial images were obtained through the chest without the use of intravenous contrast. All CT scans use one or more of the following dose optimizing techniques: automated exposure control, MA and/or KvP adjustment based on a patient size and exam type, or iterative reconstruction. INDICATION: COVID 19 COMPARISON: None available FINDINGS: Lungs and airway: There are scattered bilateral nodular consolidations and groundglass involving the lung bases. Moderate centrilobular emphysema is present in the lung apices. Calcified left lower lobe pulmonary granuloma. No bronchiectasis or honeycombing. Pleura: No pleural effusion or pneumothorax Heart and mediastinum: Thyroid is normal. No supraclavicular or axillary lymphadenopathy. No mediastinal or hilar lymphadenopathy. The heart is normal in size. Moderate coronary artery calcifications. Aortic valve leaflet calcifications are also present. Upper abdomen: No abnormality in the upper abdomen that would required further evaluation. Atherosclerotic aorta. Musculoskeletal: No worrisome focal osseous lesions. IMPRESSION: 1. There is a mixture of bilateral groundglass and consolidations which are imaging features are most likely due to an infectious process, such as COVID 19. Consider follow-up CT chest in 6-8 weeks to ensure resolution. 2. Calcified aortic valve leaflets can be seen with aortic stenosis. Echocardiogram could be performed for further assessment, as deemed clinically indicated. 3. Moderate coronary artery calcification. Dictated by: Dictated on workstation # [id number]
== END ==
LOC: RAD 07:45
DX: D46.9 Myelodysplastic syndrome, unspecified (principal); Z94.81 Bone marrow transplant status; U07.1 COVID-19; J18.1 Lobar pneumonia, unspecified organism; I70.0 Atherosclerosis of aorta; I25.10 Atherosclerotic heart disease of native coronary artery without angina pectoris
CPT/HCPCS: 71250

== ENCOUNTER 2022-02-16 14:51 | Emergency (ER) | payer MEDICARE, OTHER ==
[~2022-02-16] VITALS: Ht 159 cm; Wt 53.0 kg
[~2022-02-16 14:51] MED LIST changes: -NS IV 500 ML 500 ML IV SCH; -NS IV 500 ML 500 ML ONE; -REMDESIVIR 200 MG/NS 250 ML IVPB IV NR
--- NOTE | 2022-02-16 15:41 | ED Cough/URI ---
General Chief Complaint: COVID19 Suspect/Confirmed Stated Complaint: CT SCAN/BLOODWORK, COVID + X 5 DAYS Nursing Triage Note: PT PRESENTS TO ED VIA POV FROM HOME WITH COMPLAINTS OF INCEASING COUGH AND GENERAL EAKNESS. PT REPORTS SHE IS COVID POSITIVE. PT ALSO HAD A STEM CELL TRANSPLANT IN AUG. Source: patient Exam Limitations: no limitations History of Present Illness Date Seen by Provider: Feb 16, 2022 Time Seen by Provider: 15:15 Initial Comments Here with report of needing labs and a CT scan. Further discussion reveals the patient is COVID-positive for 5 days and has had persistent cough that seems to be worsening a little bit. She did have stem cell transplant and was on tacrolimus due to concerns about leukemia. She does have history of breast cancer. She is not currently undergoing chemotherapy and has been off the immunosuppressants for about 2 weeks now. She did get infusion therapy x3 for treatment for COVID. She denies nausea, vomiting, diarrhea. Admits that she might be a little dehydrated. Follows with Dr. Lennon. Does reveal that she fell about a week ago and has some left rib pain where she fell. She hit her tailbone but did not hit her head. She is not on blood thinners anymore. Timing/Duration: week, getting worse Severity/Quality: moderate, dry cough Prior Episodes/Possible Cause: occasional episodes Modifying Factors: Worse With Activity, Worse With Coughing; Improves With Rest Associated Symptoms: chest pain/soreness, cough, fever/chills, muscle aches, shortness of breath, sore throat Allergies and Home Medications Allergies Coded Allergies: lisinopril (Verified Allergy, Unknown, 02/04/21) Patient Home Medication List Home Medication List Reviewed: Yes Albuterol Sulfate (Albuterol Sulfate) Unknown Strength Vial.neb, Unknown Dose INH, (Reported) Entered as Reported by: JUSTUS NOYOLA on 01/28/21 0825 Carvedilol (Carvedilol) Unknown Strength Tablet, Unknown Dose PO BID, (Reported) Entered as Reported by: JUSTUS NOYOLA on 01/28/21 0825 Hydrochlorothiazide (Hydrochlorothiazide) Unknown Strength Tablet, Unknown Dose PO, (Reported) Entered as Reported by: JUSTUS NOYOLA on 01/28/21 0825 Levothyroxine Sodium (Levothyroxine) Unknown Strength Capsule, Unknown Dose PO, (Reported) Entered as Reported by: JUSTUS NOYOLA on 01/28/21824 Pantoprazole Sodium (Pantoprazole Sodium) Unknown Strength Tablet.dr, Unknown Dose PO DAILY, (Reported) Entered as Reported by: JUSTUS NOYOLA on 01/28/21824 Review of Systems Review of Systems Constitutional: see HPI; No chills; fever, weakness EENTM: nose congestion; No throat pain Respiratory: cough; No short of breath Cardiovascular: chest pain; No edema Gastrointestinal: No nausea, No vomiting Genitourinary: no symptoms reported Musculoskeletal: joint pain, muscle pain Skin: No change in color, No lesions Psychiatric/Neurological: Denies Headache, Denies Weakness All Other Systems Reviewed Negative Unless Noted: Yes Past Djgrade-Cnwzix-Ohsess Hx Patient Social History Tobacco Use?: Yes Smoking Status: Former Smoker Substance use?: No Alcohol Use?: No Pt feels they are or have been: No Past Medical History Surgery/Hospitalization HX: pmh: bone marrow transplant, copd, heart murmur Surgeries: Yes Respiratory: Yes COPD Cardiac: Yes Hypertension, Hypotension Cancer: Yes Leukemia, Breast What Type of Treatment Did You: Chemotherapy, Radiation, Surgical Intervention Psychosocial: No Family Medical History Reviewed Nursing Family Hx No Pertinent Family Hx Physical Exam Vital Signs - First Documented 02/16/22 15:05 Temp 37.2 Pulse 74 Resp 20 B/P (MAP) 122/65 (84) Pulse Ox 95 Capillary Refill : Height: '" Weight: lbs. oz. kg; 20.00 BMI Method: General Appearance: WD/WN, no apparent distress HEENT: PERRL/EOMI, pharynx normal Neck: full range of motion, supple Respiratory: lungs clear, normal breath sounds Cardiovascular: regular rate, rhythm, no murmur Gastrointestinal: non tender, soft Extremities: non-tender, normal inspection Neurologic/Psychiatric: alert, oriented x 3 Skin: normal color, warm/dry Focused Exam Lactate Level 02/16/22 17:30: Lactic Acid Level 0.86 Lactic Acid Level Laboratory Tests Test 02/16/22 17:30 Lactic Acid Level 0.86 MMOL/L (0.50-2.00) Progress/Results/Core Measures Suspected Sepsis SIRS Temperature: Pulse: 74 Respiratory Rate: 20 Laboratory Tests 02/16/22 15:25: White Blood Count 3.9L Blood Pressure 122 /65 Mean: 84 02/16/22 17:30: Lactic Acid Level 0.86 Laboratory Tests 02/16/22 15:25: Creatinine 1.23, Platelet Count 88L, Total Bilirubin 0.6 Results/Orders Lab Results Laboratory Tests Test 02/16/22 15:25 02/16/22 17:30 Range/Units White Blood Count 3.9 L 4.3-11.0 10^3/uL Red Blood Count 2.55 L 3.80-5.11 10^6/uL Hemoglobin 8.2 L 11.5-16.0 g/dL Hematocrit 25 L 35-52 % Mean Corpuscular Volume 100 H 80-99 fL Mean Corpuscular Hemoglobin 32 25-34 pg Mean Corpuscular Hemoglobin Concent 32 32-36 g/dL Red Cell Distribution Width 18.9 H 10.0-14.5 % Platelet Count 88 L 130-400 10^3/uL Mean Platelet Volume 12.6 H 9.0-12.2 fL Immature Granulocyte % (Auto) 2 % Neutrophils (%) (Auto) 72 42-75 % Lymphocytes (%) (Auto) 7 L 12-44 % Monocytes (%) (Auto) 18 H 0-12 % Eosinophils (%) (Auto) 2 0-10 % Basophils (%) (Auto) 0 0-10 % Neutrophils # (Auto) 2.8 1.8-7.8 10^3/uL Lymphocytes # (Auto) 0.3 L 1.0-4.0 10^3/uL Monocytes # (Auto) 0.7 0.0-1.0 10^3/uL Eosinophils # (Auto) 0.1 0.0-0.3 10^3/uL Basophils # (Auto) 0.0 0.0-0.1 10^3/uL Immature Granulocyte # (Auto) 0.1 0.0-0.1 10^3/uL Neutrophils % (Manual) 85 % Lymphocytes % (Manual) 1 % Monocytes % (Manual) 14 % Percent Immature Platelet Fraction 5.6 0.0-7.6 % Polychromasia MODERATE Anisocytosis SLIGHT D-Dimer 0.85 H 0.00-0.49 UG/ML Sodium Level 139 135-145 MMOL/L Potassium Level 4.3 3.6-5.0 MMOL/L Chloride Level 103 98-107 MMOL/L Carbon Dioxide Level 21 21-32 MMOL/L Anion Gap 15 H 5-14 MMOL/L Blood Urea Nitrogen 41 H 7-18 MG/DL Creatinine 1.23 0.60-1.30 MG/DL Estimat Glomerular Filtration Rate 48 BUN/Creatinine Ratio 33 Glucose Level 140 H 70-105 MG/DL Calcium Level 9.5 8.5-10.1 MG/DL Corrected Calcium 9.7 8.5-10.1 MG/DL Total Bilirubin 0.6 0.1-1.0 MG/DL Aspartate Amino Transf (AST/SGOT) 15 5-34 U/L Alanine Aminotransferase (ALT/SGPT) 11 0-55 U/L Alkaline Phosphatase 65 40-136 U/L C-Reactive Protein High Sensitivity 10.89 H 0.00-0.50 MG/DL Total Protein 6.8 6.4-8.2 GM/DL Albumin 3.8 3.2-4.5 GM/DL Procalcitonin 0.12 H <0.10 NG/ML Lactic Acid Level 0.86 0.50-2.00 MMOL/L My Orders Orders - PASQUALE PACK MD Chest 1 View, Ap/Pa Only (02/16/22 15:33) Ed Iv/Invasive Line Start (02/16/22 15:33) Ns Iv 500 Ml (Sodium Chloride 0.9%) (02/16/22 15:45) Cbc With Automated Diff (02/16/22 15:33) Comprehensive Metabolic Panel (02/16/22 15:33) Hs C Reactive Protein (02/16/22 15:33) Fibrin Degradation Products (02/16/22 15:33) Procalcitonin (Pct) (02/16/22 15:33) Manual Differential (02/16/22 15:25) Ct Chest Wo (02/16/22 16:16) Lactic Acid Analyzer (02/16/22 17:22) Blood Culture (02/16/22 17:22) Cefepime Injection (Maxipime Injection) (02/16/22 17:30) Medications Given in ED Current Medications Medications Dose Ordered Sig/Moraima Route Start Time Stop Time Status Last Admin Dose Admin Cefepime HCl 1000 mg/Sodium Chloride 50 ml @ 100 mls/hr ONCE ONCE IV 02/16/22 17:30 02/16/22 17:59 DC 02/16/22 18:10 100 MLS/HR Sodium Chloride 500 ml @ 0 mls/hr Q0M ONCE IV 02/16/22 15:45 02/16/22 15:46 DC 02/16/22 15:56 0 MLS/HR Vital Signs/I&O 02/16/22 15:05 Temp 37.2 Pulse 74 Resp 20 B/P (MAP) 122/65 (84) Pulse Ox 95 Capillary Refill : Blood Pressure Mean: 84 Progress Note : Progress Note Seen and evaluated. IV, labs, normal saline 500 mL bolus, chest x-ray ordered. Will consider CT scan after labs. Monitor patient. 1611: I did discuss the case with Dr. Lennon and reviewed all the current data. Apparently her blood counts are actually better. We will go ahead and get CT of the chest to rule out rib fractures and to better evaluate the lung space. Patient is still not requiring oxygen. Monitor patient. 1720: CT scan is negative. Patient's transplant team is actually on the phone with her now and they are wanting blood cultures, lactic acid and antibiotics due to the fever that she had today. All of this was ordered. 1735: I have initiated transfer proceedings per Dr. Gamez's request (BMT team). Case was discussed with the triage nurse. We are pending callback. Monitor patient. 1814: I did discuss the case with triage team. Patient has been accepted to [facility], Dr. Gamez excepting. Pending bed assignment. 1830: I did discuss all of this with the patient and family and they agree to transfer. Bed assignment obtained. Patient will go by [facility]. Diagnostic Imaging Diagonstic Imaging: Xray Plain Films/CT/US/NM/MRI: chest Comments [facility] [place], [place] NAME: JAYANT WONG [facility] REC#: [id number] PT STATUS: REG ER : 1955 PHYSICIAN: PASQUALE PACK MD ADMIT DATE: 02/16/22/ER Signed Date of Exam:02/16/22 CHEST 1 VIEW, AP/PA ONLY INDICATION: Cough and weakness. EXAMINATION: Frontal chest obtained at 3:47 PM. FINDINGS: The heart and mediastinal silhouette are normal in appearance. The lungs are clear except for calcified granuloma in the left lung. There is no pneumothorax or pleural fluid. IMPRESSION: No acute process in the chest. Dictated by: Dictated on workstation # [id number] Dict: 02/16/22 1549 Trans: 02/16/221704 [id number] Interpreted by: СЕРГЕЙ RODAS MD Electronically signed by: СЕРГЕЙ RODAS MD 02/16/221704 Diagonstic Imaging: CT Plain Films/CT/US/NM/MRI: chest Comments [facility] [place] [place] NAME: JAYANT WONG [facility] REC#: [id number] PT STATUS: REG ER : 1955 PHYSICIAN: PASQUALE PACK MD ADMIT DATE: 02/16/22/ER Signed Date of Exam:02/16/22 CT CHEST WO EXAMINATION: CT chest without contrast. TECHNIQUE: Multiple contiguous axial images were obtained through the chest without the use of intravenous contrast. All CT scans use one or more of the following dose optimizing techniques: automated exposure control, MA and/or KvP adjustment based on patient size and exam type or iterative reconstruction. HISTORY: Cough, weakness, left-sided rib pain. COVID positive. COMPARISON: 02/11/2022 FINDINGS: Thyroid: The thyroid is normal. Mediastinum: Heart size is normal without significant pericardial effusion. Calcifications of the aorta and coronary vessels. Thoracic aorta is normal in caliber. No suspicious lymphadenopathy. Lungs and airways: There are mild background emphysematous changes of the lungs. There are a few scattered groundglass opacities within the lungs which are improved from 02/11/2022. No focal consolidation, pleural effusion, or pneumothorax. There is scarring in the lung apices. There are a few scattered calcified granulomas. The airways are normal. Upper abdomen: The subphrenic structures are normal. Musculoskeletal: No suspicious osseous lesion or compression fracture. IMPRESSION: 1. No acute abnormality in the chest. 2. Decrease in ground glass opacities within the lungs compared to 02/11/2022. Dictated by: Dictated on workstation # [id number] Dict: 02/16/22 1648 Trans: 02/16/221707 [facility] [id number] Interpreted by: KEDAR HUNTLEY DO Electronically signed by: KEDAR HUNTLEY DO 02/16/22 1708 Departure Impression Primary Impression: COVID-19 virus infection Additional Impressions: H/O stem cell transplant Fever Qualified Codes: R50.9 - Fever, unspecified Disposition: 02 XFER SHT-TRM HOSP Condition: Stable Transfer Transfer Reason: Exceeds level of care Time Spoke to Accepting Phy: 18:14 Transfer Progress Notes Excepted at [facility], bone marrow transplant team, Dr. Gamez excepting. Transfer Facility: [place], [place], Dr. Gamez excepting. Transport via [facility] Method of Transfer: EMS Departure-Patient Inst. Referrals: JENNIFER CASTRO MD (PCP/Family) Primary Care Physician PASQUALE PACK MD Feb 16, 2022 15:40
[2022-02-16 15:44] LABS: BASOPHILS % (AUTO) 0 % (0-10); HEMOGLOBIN 8.2 g/dL (11.5-16.0); MEAN CORPUSCULAR VOLUME 100 fL (80-99)
[2022-02-16] MEDS ORDERED: NS IV 500 ML 500 ML IV ONE (15:45)
[2022-02-16 15:46] LABS: EOSINOPHILS # (AUTO) 0.1 10^3/uL (0.0-0.3); EOSINOPHILS % (AUTO) 2 % (0-10); HEMATOCRIT 25 % (35-52); LYMPHOCYTES # (AUTO) 0.3 10^3/uL (1.0-4.0); LYMPHOCYTES % (AUTO) 7 % (12-44); MEAN CORPUSCULAR HEMOGLOBIN 32 pg (25-34); MEAN CORPUSCULAR HGB CONC 32 g/dL (32-36); MEAN PLATELET VOLUME 12.6 fL (9.0-12.2); MONOCYTES # (AUTO) 0.7 10^3/uL (0.0-1.0); MONOCYTES % (AUTO) 18 % (0-12); NEUTROPHILS # (AUTO) 2.8 10^3/uL (1.8-7.8); NEUTROPHILS % (AUTO) 72 % (42-75); PLATELET COUNT 88 10^3/uL (130-400); WHITE BLOOD COUNT 3.9 10^3/uL (4.3-11.0)
[2022-02-16 15:49] LABS: ALBUMIN 3.8 GM/DL (3.2-4.5); POTASSIUM 4.3 MMOL/L (3.6-5.0)
[2022-02-16 15:50] LABS: CALCIUM 9.5 MG/DL (8.5-10.1)
[2022-02-16 15:51] LABS: TOTAL PROTEIN 6.8 GM/DL (6.4-8.2)
--- NOTE | 2022-02-16 15:51 | Diagnostic Imaging Report ---
INDICATION: Cough and weakness. EXAMINATION: Frontal chest obtained at 3:47 PM. FINDINGS: The heart and mediastinal silhouette are normal in appearance. The lungs are clear except for calcified granuloma in the left lung. There is no pneumothorax or pleural fluid. IMPRESSION: No acute process in the chest. Dictated by: Dictated on workstation # [id number]
[2022-02-16 15:53] LABS: BILIRUBIN,TOTAL 0.6 MG/DL (0.1-1.0)
[2022-02-16 15:55] LABS: CREATININE SERUM 1.23 MG/DL (0.60-1.30)
[2022-02-16 16:02] LABS: ANISOCYTOSIS SLIGHT; LYMPHOCYTES % (MANUAL) 1 %; MONOCYTES % (MANUAL) 14 %; NEUTROPHILS % (MANUAL) 85 %; POLYCHROMASIA MODERATE
--- NOTE | 2022-02-16 16:52 | Diagnostic Imaging Report ---
EXAMINATION: CT chest without contrast. TECHNIQUE: Multiple contiguous axial images were obtained through the chest without the use of intravenous contrast. All CT scans use one or more of the following dose optimizing techniques: automated exposure control, MA and/or KvP adjustment based on patient size and exam type or iterative reconstruction. HISTORY: Cough, weakness, left-sided rib pain. COVID positive. COMPARISON: 02/11/2022 FINDINGS: Thyroid: The thyroid is normal. Mediastinum: Heart size is normal without significant pericardial effusion. Calcifications of the aorta and coronary vessels. Thoracic aorta is normal in caliber. No suspicious lymphadenopathy. Lungs and airways: There are mild background emphysematous changes of the lungs. There are a few scattered groundglass opacities within the lungs which are improved from 02/11/2022. No focal consolidation, pleural effusion, or pneumothorax. There is scarring in the lung apices. There are a few scattered calcified granulomas. The airways are normal. Upper abdomen: The subphrenic structures are normal. Musculoskeletal: No suspicious osseous lesion or compression fracture. IMPRESSION: 1. No acute abnormality in the chest. 2. Decrease in ground glass opacities within the lungs compared to 02/11/2022. Dictated by: Dictated on workstation # [id number]
[2022-02-16] MEDS ORDERED: CEFEPIME INJECTION 1,000 MG in NS (IVPB) 50 ML IV ONE (17:30)
[2022-02-16 19:23] VITALS: BP 135/82
== END 2022-02-16 19:33 | disposition short-term general hospital (02) ==
LOC: EDUNIT# 14:51 → ER 14:54
DX: U07.1 COVID-19 (principal); Z73.0 Burn-out; Z87.891 Personal history of nicotine dependence; Z85.3 Personal history of malignant neoplasm of breast; Z85.6 Personal history of leukemia; Z94.81 Bone marrow transplant status; Z94.84 Stem cells transplant status; Z28.310 Unvaccinated for COVID-19
CPT/HCPCS: 36415; 71045; 71250; 80053; 83605; 84145; 85007; 85027; 85379; 86141; 87040

== ENCOUNTER → 2022-07-02 | Outpatient (CLI) | payer MEDICARE, OTHER ==
--- NOTE | 2022-07-02 15:42 | Diagnostic Imaging Report ---
PROCEDURE: CT chest without contrast. TECHNIQUE: Multiple contiguous axial images were obtained through the chest without the use of intravenous contrast. Auto Exposure Controls were utilized during the CT exam to meet ALARA standards for radiation dose reduction. INDICATION: Bone marrow transplant. Compared to 02/16/2022. FINDINGS: A few scattered calcified benign granulomata chronic, no noncalcified or suspicious chest mass. There is some very minimal biapical subpleural scarring chronic prior groundglass densities have resolved entirely. There has been no adverse development. No thoracic adenopathy. No effusion or pneumothorax. Atherosclerotic vascular calcifications chronic. IMPRESSION: Benign granulomatous disease, clear lungs at followup, no acute or suspicious finding, vascular calcifications chronic. Dictated by: Dictated on workstation # [id number]
== END ==
LOC: RAD 12:45
PROVIDERS: ATTEND Internal Medicine Infectious Disease
DX: L92.9 Granulomatous disorder of the skin and subcutaneous tissue, unspecified (principal)
CPT/HCPCS: 71250